=== PATIENT | female | born 1970 | race Hispanic/Latino ===

== ENCOUNTER 2018-09-17 14:00 | Outpatient (CLI) | payer OTHER ==
--- NOTE | 2018-09-17 14:43 | MMO ---
Bilateral MAMMO Bilat Screen [facility]. CLINICAL HISTORY: Patient is 48 years old and is seen for screening. The patient has no family history of breast cancer. The patient has no personal history of cancer. VIEWS: The views performed were: bilateral craniocaudal with tomosynthesis and bilateral mediolateral oblique with tomosynthesis. FILMS COMPARED: The present examination has been compared to prior imaging studies performed at [facility] on 06/08/2015, and at [facility] on 04/16/2014 and 04/30/2014. MAMMOGRAM FINDINGS: There are scattered fibroglandular densities. There are stable benign appearing calcifications seen in both breasts. There are no suspicious masses, suspicious calcifications, or new areas of architectural distortion. IMPRESSION: THERE IS NO MAMMOGRAPHIC EVIDENCE OF MALIGNANCY. A ROUTINE FOLLOW-UP MAMMOGRAM IN 1 YEAR IS RECOMMENDED. THE RESULTS OF THIS EXAM WERE SENT TO THE PATIENT. ACR BI-RADS Category 2 - Benign finding MAMMOGRAPHY NOTE: 1. A negative mammogram report should not delay a biopsy if a dominant of clinically suspicious mass is present. 2. Approximately 10% to 15% of breast cancers are not detected by mammography. 3. Adenosis and dense breasts may obscure an underlying neoplasm.
--- NOTE | 2018-09-17 15:11 | BD ---
EXAM: Bone densitometry using DEXA HISTORY: 48 yo female. Screening for postmenopausal osteoporosis FINDINGS: L1--bone mineral density 0.857 g/sq cm; T score -1.2 ; Z score -0.6 L2--bone mineral density 0.969 g/sq cm; T score -0.5 ; Z score 0.2 L3--bone mineral density 1.027 g/sq cm; T score -0.5 ; Z score 0.3 L4--bone mineral density 0.993 g/sq cm; T score -0.6 ; Z score 0.2 Total L1-L4--bone mineral density 0.965 g/sq cm; T score -0.7 ; Z score 0.0 Left femoral neck--bone mineral density0.839; T score -0.1 ; Z score 0.7 Total proximal left femur--bone mineral density 1.066; T score 1.0 ; Z score 1.5 IMPRESSION: Normal BMD.
== END 2018-09-17 14:01 | disposition home or self-care (01) ==
LOC: BICMAMMO 14:00
PROVIDERS: ATTEND Family Medicine
DX: Z12.31 Encounter for screening mammogram for malignant neoplasm of breast (principal); Z13.820 Encounter for screening for osteoporosis
CPT/HCPCS: 77063; 77067; 77080